=== PATIENT | male | born 1975 | race Caucasian/White ===

== ENCOUNTER 2024-02-11 15:54 | Emergency (ER) | payer OTHER ==
[2024-02-11] MEDS: Ketorolac 30 MG/ML SDV IM ONE (16:28)
[2024-02-11] MEDS: Ondansetron 4 MG Tab.DIS PO ONE (16:28)
[2024-02-11] MEDS: Morphine 2 MG/ML SYRINGE SUBCUT ONE (16:34)
[2024-02-11] MEDS: Morphine 4 MG/ML VIAL SUBCUT ONE (16:34)
[2024-02-11] MEDS ORDERED: Acetaminophen/HYDROcodone 325-5 MG Tab ONE (17:00)
== END 2024-02-11 17:10 | disposition home or self-care (01) ==
LOC: LB.ED 15:54
DX: S22.42XA Multiple fractures of ribs, left side, initial encounter for closed fracture (principal); I10 Essential (primary) hypertension; E66.9 Obesity, unspecified; Z79.899 Other long term (current) drug therapy; Z68.35 Body mass index [BMI] 35.0-35.9, adult; W19.XXXA Unspecified fall, initial encounter
CPT/HCPCS: 71101; 96372; 99283; A9270; J1885; J2270; Q0162